=== PATIENT | female | born 1960 | race Caucasian/White ===

== ENCOUNTER → 2019-03-08 | Outpatient (CLI) | payer BC ==
[2019-03-08 13:24] LABS: HEMATOCRIT 39 % (35-52); HEMOGLOBIN 13.1 G/DL (11.5-16.0); MEAN CORPUSCULAR HEMOGLOBIN 30 PG (25-34); MEAN CORPUSCULAR HGB CONC 34 G/DL (32-36); MEAN CORPUSCULAR VOLUME 88 FL (80-99); MEAN PLATELET VOLUME 10.6 FL (7.4-10.4); PLATELET COUNT 242 10^3/uL (130-400); RED CELL DISTRIBUTION WIDTH 12.1 % (10.0-14.5)
[2019-03-08 13:25] LABS: BASOPHILS % (AUTO) 1 % (0-10); EOSINOPHILS # (AUTO) 0.1 10^3/uL (0.0-0.3); EOSINOPHILS % (AUTO) 1 % (0-10); LYMPHOCYTES # (AUTO) 2.4 X 10^3 (1.0-4.0); LYMPHOCYTES % (AUTO) 40 % (12-44); MONOCYTES # (AUTO) 0.4 X 10^3 (0.0-1.0); MONOCYTES % (AUTO) 6 % (0-12); NEUTROPHILS # (AUTO) 3.1 X 10^3 (1.8-7.8); NEUTROPHILS % (AUTO) 52 % (42-75)
[2019-03-08 13:31] LABS: ALANINE AMINOTRANSFERASE 10 U/L (0-55); ALBUMIN 4.5 GM/DL (3.2-4.5); ALKALINE PHOSPHATASE 52 U/L (40-136); BILIRUBIN,TOTAL 0.5 MG/DL (0.1-1.0); BUN/CREATININE RATIO 20; CALCIUM 9.9 MG/DL (8.5-10.1); CARBON DIOXIDE 22 MMOL/L (21-32); CHLORIDE 101 MMOL/L (98-107); CREATININE SERUM 0.75 MG/DL (0.60-1.30); GFR ESTIMATED > 60; GLUCOSE 90 MG/DL (70-105); POTASSIUM 3.4 MMOL/L (3.6-5.0); SODIUM 136 MMOL/L (135-145); TOTAL PROTEIN 7.3 GM/DL (6.4-8.2)
[2019-03-08 15:02] LABS: CHOLESTEROL 225 MG/DL (< 200); HDL CHOLESTEROL 86 MG/DL (40-60); TRIGLYCERIDES 66 MG/DL (<150); VLDL CHOLESTEROL 13 MG/DL (5-40)
== END ==
LOC: LAB FS 11:30
PROVIDERS: ATTEND Pediatrics
DX: Z00.129 Encounter for routine child health examination without abnormal findings (principal)
CPT/HCPCS: 36415; 80053; 80061; 85025

== ENCOUNTER → 2021-02-24 | Outpatient (CLI) | payer BC ==
--- NOTE | 2021-02-24 16:31 | Diagnostic Imaging Report ---
INDICATION: Previous fall. Now with left shoulder pain. COMPARISON: None. FINDINGS: Three radiographic views of the left shoulder were obtained. External rotation view demonstrates fracture extending to the cortex of the lateral margins of the humeral head. There is no significant displacement of fracture fragments. Advanced osteoarthritic changes of the glenohumeral joint space are noted. There is remodeling of the humeral head and glenoid with bulky extraosseous calcifications about the joint space. Otherwise, joint space is maintained. AC joint is intact as well. Included portions of the left hemithorax are clear. No unexpected radiopaque foreign bodies are seen. Note is also made of irregular appearance to the medial cortex of the scapula, superiorly. This is only well visualized on the internal rotation view and is concerning for potential fracture as well. IMPRESSION: 1. Acute fracture of the left humeral head. 2. Findings suspicious for acute fracture of the left scapula as well. May want to consider further characterization with CT. 3. Advanced degenerative changes of the left glenohumeral joint space. Dictated by: Dictated on workstation # [id number]
== END ==
LOC: RAD FS 16:09
PROVIDERS: ATTEND Nurse Practitioner Family
DX: S42.292A Other displaced fracture of upper end of left humerus, initial encounter for closed fracture (principal); M19.012 Primary osteoarthritis, left shoulder; W19.XXXA Unspecified fall, initial encounter
CPT/HCPCS: 73030

== ENCOUNTER → 2021-03-15 | Outpatient (CLI) | payer BC ==
--- NOTE | 2021-03-15 16:42 | Diagnostic Imaging Report ---
EXAM: CT left shoulder without contrast. DATE: March 15, 2021. INDICATION: 61-year-old female, history of prior fracture of the left proximal humerus. Left shoulder pain. COMPARISON: Left shoulder radiographs February 24, 2021. TECHNIQUE: Axial CT images of the shoulder were obtained without contrast. Coronal and Sagittal as well as three dimensional reconstructions were obtained and provided. All CT scans use one or more of the following dose optimizing techniques: automated exposure control, MA and/or KvP adjustment based on patient size and exam type or iterative reconstruction. FINDINGS: The humeral head is normally positioned relative to the glenoid. There is severe glenohumeral joint space loss with bone on bone articulation. There are very large osteophytes extending off the inferior aspect of the humeral head. There are large ossified intra-articular bodies with the largest located in the region of the axillary recess. One example is on coronal image 43 measuring 2.0 x 1.0 cm in size. There is also a smaller ossified intra-articular body near the posterior superior glenoid. There is no prominent volume loss of the glenoid. The acromioclavicular joint is normally aligned. There are no prominent acromioclavicular degenerative changes. There is no os acromiale. There is sclerosis at the site of previously noted fracture of the left proximal humeral metaphysis. The fracture line is substantially less well seen since the comparison exam on February 24, 2021 and likely relates to interval partial healing response. The fracture is currently nondisplaced. There is no identified fracture of the scapula. There is nondiagnostic direct assessment of the rotator cuff tendons on CT. There is no fatty atrophy of the rotator cuff musculature. The visualized portions of the left lung are clear. IMPRESSION: 1. Nondisplaced fracture of the proximal humeral metaphysis with partial interval healing response. 2. No identified fracture of the scapula. 3. End-stage glenohumeral arthritis with very large osteophytes extending off the inferior aspect of the humeral head and multiple large intra-articular ossified bodies. 4. Intact acromioclavicular joint. 5. No fatty atrophy of the rotator cuff musculature. Dictated by: Dictated on workstation # [id number]
== END ==
LOC: RAD FS 13:39
PROVIDERS: ATTEND Nurse Practitioner
DX: S42.202D Unspecified fracture of upper end of left humerus, subsequent encounter for fracture with routine healing (principal); X58.XXXD Exposure to other specified factors, subsequent encounter
CPT/HCPCS: 73200

== ENCOUNTER → 2021-08-24 | Outpatient (CLI) | payer BC ==
--- NOTE | 2021-08-24 09:19 | Diagnostic Imaging Report ---
PROCEDURE: MRI left upper extremity without contrast. TECHNIQUE: Multiplanar, multisequence non contrast-enhanced MRI of the left upper extremity was accomplished. INDICATION: Palpable lump on the palm of left hand. COMPARISON: None available. FINDINGS: Skin marker was placed on the palmar surface of the hand to demarcate the site of palpable concern. The marker is located along the ulnar aspect of the palm of the hand in the region of the 3rd intermetacarpal space. Underlying the marker, there is no soft tissue mass or cyst. The lumbrical muscles are normal in appearance and are near the site of the marker. The flexor tendons are intact without tenosynovitis. No features of annular amarjit injury within the fingers. Intrinsic muscular hand are normal in appearance. No fracture or osseous erosions. No fracture or concerning focal osseous lesion. No erosions. IMPRESSION: No soft tissue or osseous mass to account for patient's site of palpable concern in the palm of the hand. Dictated by: Dictated on workstation # [id number]
== END ==
LOC: RAD 08:00
PROVIDERS: ATTEND Nurse Practitioner Family
DX: M85.642 Other cyst of bone, left hand (principal)
CPT/HCPCS: 73218